=== PATIENT | female | born 1970 | race Caucasian/White ===

== ENCOUNTER 2017-02-05 15:13 | Emergency (ER) | payer OTHER ==
[2017-02-05 16:47] LABS: UA SPECIFIC GRAVITY >=1.030 (1.005-1.035); microscopic required? YES; urine erythrocyte 3+ (NEGATIVE)
[2017-02-05 18:59] VITALS: BP 126/70
== END 2017-02-05 18:59 | disposition home or self-care (01) ==
LOC: ED 15:13
PROVIDERS: Emergency Medicine
DX: N39.0 Urinary tract infection, site not specified (principal)
CPT/HCPCS: J1885; Q0092

== ENCOUNTER 2018-04-27 13:02 | Emergency (ER) | payer OTHER ==
[~2018-04-27] VITALS: Ht 165.1 cm; Wt 80.7 kg
[2018-04-27 13:08] VITALS: Ht 165.1 cm; Wt 80.7 kg
[2018-04-27 13:54] VITALS: BP 118/65
== END 2018-04-27 13:54 | disposition home or self-care (01) ==
LOC: ED 13:02
DX: S16.1XXA Strain of muscle, fascia and tendon at neck level, initial encounter (principal); V43.52XA Car driver injured in collision with other type car in traffic accident, initial encounter; Y92.410 Unspecified street and highway as the place of occurrence of the external cause